=== PATIENT | male | born 1985 | race Hispanic/Latino ===

== ENCOUNTER 2019-07-16 23:11 | Emergency (ER) | payer BC ==
[2019-07-16 23:35] VITALS: BP 135/81
--- NOTE | 2019-07-17 00:04 | XRay Report ---
XR RIGHT ANKLE 3 VIEWS INDICATION / CLINICAL INFORMATION: ankle pain and swelling COMPARISON: None available. FINDINGS: BONES / JOINT(S): No acute fracture or subluxation. No significant arthritis. SOFT TISSUES: No significant abnormality. ADDITIONAL FINDINGS: None. Signer Name: Alessia Gomez MD Signed: 07/17/2019 12:00 AM Workstation Name: [id number]
--- NOTE | 2019-07-17 00:31 | Emergency Department Report ---
ED Lower Extremity HPI - General Chief Complaint: Extremity Injury, Lower Stated Complaint: ROLLED RIGHT ANKLE Time Seen by Provider: 07/17/19 00:04 Source: patient Mode of arrival: Ambulatory Limitations: No Limitations - History of Present Illness Initial Comments: 34-year-old male with no significant past medical history presents to the Hospital complaining of right ankle injury several days ago. Patient rolled his ankle. He was able to bear weight immediately after the injury and today. He presents with a stirrup ankle splint in place. He missed work states he needs clearance to return as well as requesting a note for the days he missed. - Related Data Previous Rx's Medication Instructions Recorded Last Taken Type Ibuprofen [Motrin] 600 mg PO Q8H PRN #20 tablet 07/17/19 Unknown Rx Allergies Allergy/AdvReac Type Severity Reaction Status Date / Time No Known Allergies Allergy Verified 07/16/19 23:33 ED Review of Systems ROS: Stated complaint: ROLLED RIGHT ANKLE Other details as noted in HPI Comment: All other systems reviewed and negative ED Past Medical Hx - Past Medical History Previous Medical History?: No - Surgical History Past Surgical History?: No - Social History Smoking Status: Current Every Day Smoker Substance Use Type: Alcohol - Medications Home Medications: Home Medications Medication Instructions Recorded Confirmed Last Taken Type Ibuprofen [Motrin] 600 mg PO Q8H PRN #20 tablet 07/17/19 Unknown Rx ED Physical Exam - General Limitations: No Limitations - Other Other exam information: Gen.: No acute distress Head: Atraumatic Eyes: Normal appearance ENT: Moist mucous membranes Neck: Normal appearance, no posterior midline tenderness, no meningismus Chest: Clear to auscultation bilaterally Cardiovascular: Regular rate and rhythm Abdomen: Normal appearance, soft, nontender, no rebound or guarding, normal bowel sounds Back: Normal appearance, nontender Extremity: Full range of motion, no isolated medial or lateral malleoli pain. 2+ DP pulse. No edema. max pain with ankle inversion. pain over lateral ankle ligaments Neuro: Alert and oriented 3, clear speech, no focal motor or sensory deficit Psychiatric: Appropriate Skin: No rash ED Course Vital Signs 07/16/19 23:34 Temperature 98.0 F Pulse Rate 96 H Respiratory 18 Rate Blood Pressure 135/81 [Right] O2 Sat by Pulse 97 Oximetry ED Lower Extremity MDM - Radiology Data Radiology results: report reviewed XR RIGHT ANKLE 3 VIEWS INDICATION / CLINICAL INFORMATION: ankle pain and swelling COMPARISON: None available. FINDINGS: BONES / JOINT(S): No acute fracture or subluxation. No significant arthritis. SOFT TISSUES: No significant abnormality. ADDITIONAL FINDINGS: None. - Medical Decision Making Patient with minimal pain. Minimal swelling. Patient presents with signs and symptoms of ankle sprain with his own splint in place. X-ray negative for fracture - Differential Diagnosis fracture, contusion, sprain Critical Care Time: No Critical care attestation.: If time is entered above; I have spent that time in minutes in the direct care of this critically ill patient, excluding procedure time. ED Disposition Clinical Impression: Right ankle sprain Disposition: - TO HOME OR SELFCARE Is pt being admited?: No Does the pt Need Aspirin: No Condition: Stable Instructions: Ankle Sprain (ED) Additional Instructions: Take the medication as prescribed. Follow-up with your doctor or with the doctor/clinic provided. Return if symptoms worsen as indicated by your discharge instructions. Prescriptions: Ibuprofen [Motrin] 600 mg PO Q8H PRN #20 tablet PRN Reason: Pain Referrals: PRIMARY MD CHAVEZ [Primary Care Provider] - 3-5 Days DAI XAVIER MD [Staff Physician] - 3-5 Days Forms: Work/School Release Form(ED) Time of Disposition: 00:33
== END 2019-07-17 00:50 | disposition home or self-care (01) ==
LOC: ED 23:11
DX: S93.401A Sprain of unspecified ligament of right ankle, initial encounter (principal); F17.200 Nicotine dependence, unspecified, uncomplicated; X50.9XXA Other and unspecified overexertion or strenuous movements or postures, initial encounter; Y93.89 Activity, other specified; Y92.89 Other specified places as the place of occurrence of the external cause; Y99.8 Other external cause status

== ENCOUNTER 2021-11-21 16:11 | Emergency (ER) | payer SELFPAY | END 2021-11-21 17:55 | disposition left against medical advice (07) | LOC: ED 16:11 | DX: S05.90XA Unspecified injury of unspecified eye and orbit, initial encounter (principal); Z53.21 Procedure and treatment not carried out due to patient leaving prior to being seen by health care provider; X58.XXXA Exposure to other specified factors, initial encounter; Y93.89 Activity, other specified; Y92.89 Other specified places as the place of occurrence of the external cause; Y99.8 Other external cause status ==